=== PATIENT | female | born 1970 | race Caucasian/White ===

== ENCOUNTER 2021-05-22 08:53 | Emergency (ER) | payer BC ==
[~2021-05-22] VITALS: Ht 170.2 cm; Wt 125.9 kg
[2021-05-22 09:55] VITALS: TEMP 98.5
[2021-05-22 10:32] LABS: BASO # 0.1 (0.0-0.2); BASO % 0.3 % (0.0-2.0); EOS # 0.1 (0.0-0.7); EOS % 0.3 % (0-4.0); GRAN # 13.2 (1.4-6.5); GRAN % 76.4 % (42.2-75.2); HEMATOCRIT 44.1 % (37.0-47.0); HEMOGLOBIN 14.8 g/dl (12.5-16.0); LYMPH # 2.5 (1.2-3.4); LYMPH % 14.2 % (20.0-51.0); MEAN CELL VOLUME 87 fl (80.0-100.0); MEAN CORPUSCULAR HEMOGLOBIN 29 pg (27.0-31.0); MEAN CORPUSCULAR HGB CONC 34 g/dl (33.0-37.0); MEAN PLATELET VOLUME 10.7 fl (7.4-10.4); MONO # 1.4 (0.1-0.6); MONO % 7.8 % (1.7-9.3); PLATELET COUNT 442 K/mm3 (130-400); RED BLOOD COUNT 5.05 M/mm3 (4.10-5.30); REDCELL DISTRIBUTION WIDTH-CV 12.9 % (11.5-14.5)
[2021-05-22] MEDS ORDERED: DOXYCYCLINE HY100 MG PO (11:21)
[2021-05-22 11:40] VITALS: BP 121/81; PULSE 73
== END 2021-05-22 11:40 | disposition home or self-care (01) ==
LOC: COL.ER 08:53
PROVIDERS: Physician Assistant
DX: L02.416 Cutaneous abscess of left lower limb (principal); L02.436 Carbuncle of left lower limb; I10 Essential (primary) hypertension

== ENCOUNTER 2022-06-07 12:37 | Outpatient (CLI) | payer BC ==
[~2022-06-07] VITALS: Ht 170.2 cm; Wt 126.6 kg
[~2022-06-07 12:37] MED LIST: DOXYCYCLINE HY100 MG PO
[2022-06-07 13:31] VITALS: BP 116/74; PULSE 65; TEMP 98
[2022-06-07] MEDS ORDERED: ZOLOFT 50MG50 MG PO (13:38)
[2022-06-07] MEDS ORDERED: TOPROL XL100 MG PO (13:38)
[2022-06-07] MEDS ORDERED: JARDIANCE25 PO (13:38)
[2022-06-07] MEDS ORDERED: PRILOSEC 20MG20 MG PO (13:39)
[2022-06-07] MEDS ORDERED: ACTOS30 MG PO (13:39)
[2022-06-07] MEDS ORDERED: GLUCOPHAGE XR500 M1 PO (13:39)
[2022-06-07] MEDS ORDERED: MULTIVITAMIN FO1 CAP PO (13:40)
[2022-06-07] MEDS ORDERED: LEVAQUIN 5500 MG/TA1 PO (13:40)
[2022-06-07] MEDS ORDERED: VITAMIN D31000 I1 PO (13:41)
--- NOTE | 2022-06-07 15:00 | NUR ---
Pt tolerated infusion without issue. Pt remained for observation following infusion. No s/s of med reaction. IV DC'd, site wrapped with coban. Pt escorted out to elevator.
== END 2022-06-07 15:00 | disposition home or self-care (01) ==
LOC: EUO 12:37
DX: A49.01 Methicillin susceptible Staphylococcus aureus infection, unspecified site (principal)
CPT/HCPCS: J0875; J7060